=== PATIENT | female | born 1950 | race Caucasian/White ===

== ENCOUNTER 2017-02-17 14:55 | Emergency (ER) | payer MEDICARE, OTHER ==
[~2017-02-17] VITALS: Ht 167.6 cm; Wt 80.3 kg
[~2017-02-17 14:55] MED LIST: ASPI81TA82 PO; ATOR40TA49; CALC600T34 PO; CETI10 PO; LISI-357 PO; MECL25CH PO; METF-324 PO; VENL75 PO; ZOFR4TAB3 SL
[2017-02-17 15:00] VITALS: BP 154/95; PULSE 74; RESP 17; TEMP 97.5; O2SAT 100
[2017-02-17] MEDS ORDERED: SODIUM CHLOR 0.9% 1000 ML INJ 1,000 ML IV ONE (16:04)
--- NOTE | 2017-02-17 16:12 | PD ---
HPI Chief Complaint: Headache Time Seen by Provider: 15:54 Travel History International Travel<30 days: No Contact w/Intl Traveler<30days: No Traveled to known affect area: No History of Present Illness HPI This 66 year-old woman who presents to the emergency department complaining of 3 days of headache. Headaches in the front more on the right side. She was recently diagnosed with migraines. States headache feels similar to when she was in the hospital last year with headache and some dizziness. She is having some dizziness now. Not much photophobia or phonophobia. She otherwise has been feeling generally well. Since being diagnosed with migraines her primary doctor gave her a prescription for Imitrex which is helped with a couple headache she's had in between. Family members have trouble with headaches as well. Migraine headaches as well. Symptoms have been severe, and constant for the past 3 days. No other complaints. History Past Medical History Narrative Medical Diabetes Asthma Migraines Hypertension Depression Menopausal: Yes Social History Alcohol Use: Yes (4 TIMES PER WEEK) Tobacco Use: No Allergies-Medications (Allergen,Severity, Reaction): Coded Allergies: Erythromycin (Verified Adverse Reaction, Intermediate, VOMITING, 02/17/17) Reported Meds & Prescriptions Reported Meds & Active Scripts Active Reported Zofran (Ondansetron HCl) 4 Mg Tab 4 Mg PO Q6HR PRN Metformin (Metformin HCl) 1,000 Mg Tab 1,000 Mg PO DAILY With a meal Meclizine (Meclizine HCl) 25 Mg Chew 25 Mg CHEW DIRECTED PRN Lisinopril 5 Mg Tab 5 Mg PO DAILY Zyrtec Allergy (Cetirizine HCl) 10 Mg Cap 10 Mg PO DAILY Calcium 600 with Vitamin D (Calcium Carbonate-Cholecalciferol) 600-400 mg-Unit Tab 1 Tab PO DAILY Atorvastatin (Atorvastatin Calcium) 40 Mg Tab 40 Mg PO HS Aspirin 81 Mg Chew 81 Mg CHEW DAILY Review of Systems Except as stated in HPI: all other systems reviewed are Neg Physical Exam Narrative GENERAL: Well-appearing 66 year-old woman, no acute distress. SKIN: Warm and dry. HEAD: Atraumatic. Normocephalic. NECK: Trachea midline. No JVD. Moves neck freely. CARDIOVASCULAR: Regular rate and rhythm. No murmur appreciated. RESPIRATORY: No accessory muscle use. Clear to auscultation. Breath sounds equal bilaterally. GASTROINTESTINAL: Abdomen soft, non-tender, nondistended. Hepatic and splenic margins not palpable. MUSCULOSKELETAL: No obvious deformities. No clubbing. No cyanosis. No edema. NEUROLOGICAL: Awake and alert. No obvious cranial nerve deficits. Strength full and equal upper and lower extremities. Normal speech. Data Data Last Documented VS Vital Signs Date Time Temp Pulse Resp B/P Pulse Ox O2 Delivery O2 Flow Rate FiO2 02/17/17 17:40 Room Air 02/17/17 16:18 16 100 02/17/17 16:18 80 132/91 02/17/17 15:00 97.5 Orders Iv Access Insert/Monitor (02/17/17 16:04) Ketorolac Inj (Toradol Inj) (02/17/17 16:15) Prochlorperazine Inj (Compazine Inj) (02/17/17 16:15) Diphenhydramine Inj (Benadryl Inj) (02/17/17 16:15) Sodium Chlor 0.9% 1000 Ml Inj (Ns 1000 M (02/17/17 16:04) Dexamethasone Inj (Decadron Inj) (02/17/17 16:15) MDM Medical Decision Making Medical Screen Exam Complete: Yes Emergency Medical Condition: Yes Differential Diagnosis Migraine, headache, bleed, infection, sinus problems, other Narrative Course Medical decision making INITIAL: 66 year-old woman who presents to the emergency department with 3 days of right sided headache, consistent with previous headaches suspicious for migraines. She is otherwise well. No focal deficits. We'll give migraine cocktail, fluids, steroids, outpatient follow-up. : PATIENT FEELING MUCH IMPROVED. WILL BE DISCHARGED FOR OUTPATIENT FOLLOW-UP. Diagnosis Primary Impression: Migraine headache Qualified Code: G43.909 - Migraine without status migrainosus, not intractable , unspecified migraine type Additional Instructions: Continue current medications. Follow-up with her primary doctor in the next 3-5 days. Return to the emergency department for any new or worsening symptoms. Med/Other Pt SpecificInfo: No Change to Meds Disposition: 01 DISCHARGE HOME Condition: Stable Jakub George MD Feb 17, 2017 16:12
[2017-02-17] MEDS ORDERED: diphenhydrAMINE HCL 50 MG/ML VIAL IVP ONE (16:15)
[2017-02-17] MEDS ORDERED: DEXAMETHASONE SOD PHOS 20 MG/5 ML VIAL IV PUSH ONE (16:15)
[2017-02-17] MEDS ORDERED: PROCHLORPERAZINE INJ 10 MG/2 ML VIAL IVP ONE (16:15)
[2017-02-17] MEDS ORDERED: KETOROLAC TROMETHAMINE 30 MG/ML (IVP) VIAL IVP ONE (16:15)
[2017-02-17 16:18] VITALS: BP 132/91; PULSE 80; RESP 16; O2SAT 100
[2017-02-17] MEDS ORDERED: ASPI81CH CHEW (16:24)
[2017-02-17] MEDS ORDERED: CALC1TAB87 PO (16:25)
[2017-02-17] MEDS ORDERED: ZYRT10CA PO (16:25)
[2017-02-17] MEDS ORDERED: ATOR40TA16 PO (16:25)
[2017-02-17] MEDS ORDERED: LISI-519 PO (16:26)
[2017-02-17] MEDS ORDERED: MECL25CH CHEW (16:26)
[2017-02-17] MEDS ORDERED: METF1000 PO (16:26)
[2017-02-17] MEDS ORDERED: ZOFR4TAB PO (16:27)
[2017-02-17 17:40] VITALS: BP 134/80; PULSE 70; RESP 16; O2SAT 100
== END 2017-02-17 18:09 | disposition home or self-care (01) ==
LOC: PHED 14:55
DX: G43.909 Migraine, unspecified, not intractable, without status migrainosus (principal)
CPT/HCPCS: 96361; 96374; 96375; 99283; J0780; J1100; J1200; J1885; J7030